=== PATIENT | female | born 1955 | race Caucasian/White ===

== ENCOUNTER 2018-04-24 12:46 | Emergency (ER) | payer SELFPAY ==
[~2018-04-24] VITALS: Ht 177.8 cm; Wt 56.8 kg
[2018-04-24 12:51] VITALS: TEMP 98.1
[2018-04-24 13:23] LABS: BASO % 0.2 % (0.0-2.0); GRAN % 82.3 % (42.2-75.2); HEMATOCRIT 41.3 % (37.0-47.0); HEMOGLOBIN 14.2 g/dl (12.5-16.0); LYMPH % 10.1 % (20.0-51.0); MEAN CELL VOLUME 89 fl (80.0-100.0); MEAN CORPUSCULAR HEMOGLOBIN 31 pg (27.0-31.0); MEAN CORPUSCULAR HGB CONC 34 g/dl (33.0-37.0); MEAN PLATELET VOLUME 10.2 fl (7.4-10.4); MONO # 0.7 (0.1-0.6); MONO % 6.9 % (1.7-9.3); PLATELET COUNT 271 K/mm3 (130-400); RED BLOOD COUNT 4.64 M/mm3 (4.10-5.30); REDCELL DISTRIBUTION WIDTH-CV 13.1 % (11.5-14.5)
[2018-04-24 13:38] LABS: ALANINE AMINOTRANSFERASE 16 U/L (9-52); ALBUMIN 4.6 gm/dL (3.5-5.0); ALKALINE PHOSPHATASE 98 U/L (50-136); ANION GAP 11 mmol/L (7-16); AST,SGOT 18 U/L (15-37); BILIRUBIN,TOTAL 0.5 mg/dL (0.0-1.0); BLOOD UREA NITROGEN 18 mg/dL (7-17); CALCIUM 10.6 mg/dL (8.4-10.2); CARBON DIOXIDE 26 mmol/L (22-30); CHLORIDE 101 mmol/L (98-107); CREATININE, serum 0.76 mg/dL (0.52-1.25); GLUCOSE 151 mg/dL (74-106); MAGNESIUM 1.8 mg/dL (1.6-2.3); PHOSPHOROUS 3.3 mg/dL (2.5-4.5); POTASSIUM 3.6 mmol/L (3.4-5.0); SODIUM 138 mmol/L (137-145)
[2018-04-24 13:49] LABS: TROPONIN-I < 0.012 ng/mL (0.000-0.034)
[2018-04-24 14:52] VITALS: BP 126/75; PULSE 78
== END 2018-04-24 15:10 | disposition short-term general hospital (02) ==
LOC: COL.ER 12:46
PROVIDERS: Emergency Medicine
DX: I60.9 Nontraumatic subarachnoid hemorrhage, unspecified (principal); F17.210 Nicotine dependence, cigarettes, uncomplicated; W19.XXXA Unspecified fall, initial encounter; Y92.009 Unspecified place in unspecified non-institutional (private) residence as the place of occurrence of the external cause
CPT/HCPCS: J1953; J2405; J3010; J7030; J7050

== ENCOUNTER 2018-08-26 21:32 | Emergency (ER) | payer MEDICAID ==
[2018-08-26 22:24] LABS: BASO % 0.3 % (0.0-2.0); EOS # 0.1 (0.0-0.7); EOS % 0.9 % (0-4.0); GRAN # 11.7 (1.4-6.5); GRAN % 82.3 % (42.2-75.2); HEMOGLOBIN 11.3 g/dl (12.5-16.0); LYMPH # 0.9 (1.2-3.4); MEAN CELL VOLUME 87 fl (80.0-100.0); MEAN CORPUSCULAR HEMOGLOBIN 27 pg (27.0-31.0); MEAN CORPUSCULAR HGB CONC 31 g/dl (33.0-37.0); MEAN PLATELET VOLUME 9.1 fl (7.4-10.4); MONO # 1.4 (0.1-0.6); PLATELET COUNT 380 K/mm3 (130-400); RED BLOOD COUNT 4.17 M/mm3 (4.10-5.30); REDCELL DISTRIBUTION WIDTH-CV 14.4 % (11.5-14.5)
[2018-08-26 22:29] LABS: HEMATOCRIT 36.2 % (37.0-47.0)
[2018-08-26 22:39] LABS: ALANINE AMINOTRANSFERASE < 6 U/L (9-52); ALKALINE PHOSPHATASE 148 U/L (50-136); ANION GAP 13 mmol/L (7-16); AST,SGOT 18 U/L (15-37); BILIRUBIN,TOTAL 0.3 mg/dL (0.0-1.0); BLOOD UREA NITROGEN 25 mg/dL (7-17); CARBON DIOXIDE 24 mmol/L (22-30); CHLORIDE 103 mmol/L (98-107); CREATININE, serum 0.73 (0.52-1.25); GLUCOSE 100 mg/dL (74-106); LIPASE 42 U/L (23-300); POTASSIUM 4.2 mmol/L (3.4-5.0); SODIUM 141 mmol/L (137-145); TOTAL PROTEIN 8.3 gm/dL (6.4-8.2)
[2018-08-26 22:47] LABS: COLLECTION METHOD CLEAN CATCH
[2018-08-26 22:48] LABS: TROPONIN-I < 0.012 ng/mL (0.000-0.035)
[2018-08-26 22:57] LABS: AMORPHOUS CRYSTAL Present /uL; PH 7 (5-8); SQUAMOUS EPITHELIAL 0-2 /hpf; URINE APPEARANCE Clear; URINE BACTERIA None Seen /hpf; URINE BILIRUBIN Negative (NEGATIVE); URINE BLOOD 1+ (NEGATIVE); URINE COLOR Yellow; URINE GLUCOSE Negative (NEGATIVE); URINE KETONE Trace (NEGATIVE); URINE LEUKOCYTE ESTERASE Negative (NEGATIVE); URINE NITRATE Negative (NEGATIVE); URINE PROTEIN(semi-quant) Negative (NEGATIVE); URINE UROBILINOGEN Negative (NEGATIVE)
[2018-08-26 23:12] LABS: C-REACTIVE PROTEIN 14.2 mg/dL (0.0-0.9)
[2018-08-26] MEDS ORDERED: ROXICODONE 55 MG/TAB PO (23:13)
[2018-08-26] MEDS ORDERED: LIORESAL20 MG PO (23:13)
[2018-08-26] MEDS ORDERED: ASPIRIN 32325 MG/TAB PO (23:14)
[2018-08-26] MEDS ORDERED: FLOMAX 0.40.4 MG/CAP PO (23:14)
[2018-08-26] MEDS ORDERED: DEPAKOTE ER 50500 MG PO ×2 (23:15)
[2018-08-26] MEDS ORDERED: MELATONIN5 M1 PO (23:16)
[2018-08-26] MEDS ORDERED: ELAVIL100 MG PO (23:16)
[2018-08-26] MEDS ORDERED: NEURONTIN300 MG/CAP PO (23:16)
[2018-08-26] MEDS ORDERED: PROAIR HFA0.09 MG/AC INH (23:17)
[2018-08-26 23:30] VITALS: BP 147/81; PULSE 131; TEMP 103.8
== END 2018-08-27 00:03 | disposition short-term general hospital (02) ==
LOC: COL.ER 21:32
PROVIDERS: Emergency Medicine
DX: J18.1 Lobar pneumonia, unspecified organism (principal); A41.9 Sepsis, unspecified organism; Z79.82 Long term (current) use of aspirin
CPT/HCPCS: J0692; J2543; J7030; J7050

== ENCOUNTER 2018-09-11 13:31 | Emergency (ER) | payer MEDICAID ==
[~2018-09-11] VITALS: Ht 175.3 cm; Wt 76.4 kg
[~2018-09-11 13:31] MED LIST: ASPIRIN 32325 MG/TAB PO; DEPAKOTE ER 50500 MG PO; ELAVIL100 MG PO; FLOMAX 0.40.4 MG/CAP PO; LIORESAL20 MG PO; MELATONIN5 M1 PO; NEURONTIN300 MG/CAP PO; PROAIR HFA0.09 MG/AC INH; ROXICODONE 55 MG/TAB PO
[2018-09-11 13:35] VITALS: TEMP 98.8
[2018-09-11 15:00] LABS: BASO # 0.1 (0.0-0.2); BASO % 0.8 % (0.0-2.0); EOS # 0.3 (0.0-0.7); EOS % 4.3 % (0-4.0); GRAN # 3.6 (1.4-6.5); GRAN % 57.3 % (42.2-75.2); HEMOGLOBIN 11.2 g/dl (12.5-16.0); LYMPH # 1.8 (1.2-3.4); LYMPH % 29.4 % (20.0-51.0); MEAN CELL VOLUME 87 fl (80.0-100.0); MEAN CORPUSCULAR HEMOGLOBIN 27 pg (27.0-31.0); MEAN CORPUSCULAR HGB CONC 31 g/dl (33.0-37.0); MEAN PLATELET VOLUME 9.6 fl (7.4-10.4); MONO # 0.5 (0.1-0.6); MONO % 7.9 % (1.7-9.3); PLATELET COUNT 337 K/mm3 (130-400); RED BLOOD COUNT 4.14 M/mm3 (4.10-5.30); REDCELL DISTRIBUTION WIDTH-CV 15.2 % (11.5-14.5)
[2018-09-11 15:04] LABS: HEMATOCRIT 35.9 % (37.0-47.0)
[2018-09-11 15:11] LABS: ALBUMIN 3.8 gm/dL (3.5-5.0); BILIRUBIN,TOTAL 0.2 mg/dL (0.0-1.0); C-REACTIVE PROTEIN 0.6 mg/dL (0.0-0.9); CALCIUM 9.7 mg/dL (8.4-10.2); CREATININE, serum 0.59 (0.52-1.25); POTASSIUM 4.4 mmol/L (3.4-5.0); TOTAL PROTEIN 7.6 gm/dL (6.4-8.2)
--- NOTE | 2018-09-11 15:11 | NUR ---
FITO was called by ED nurse to speak with patient's daughter about options for home health or LTC. FITO met with patient's daughter, Crystal. Crystal is the primary caregiver for patient since june. Patient had a stoke in April and has been getting outpatient PT, OT, and ST since her stroke. Patient's daughter reports she has tried to get patient into a nursing facility for LTC but she has not found a facility that will accept her. Also, if patient was in LTC she would not recieve any therapies. Patient and daughter would like patient to continue with therapies but patient's daughter needs more assistance at home. Crystal reported that patient has recenlty been approved for 64 hours of home health services through [facility]. Those services have not started yet, but Crystal is working to get those started. FITO reported that if Crystal would like her to continue with outpatient therapies but also recieve home health nursing, FITO can help arrange home health. Crystal reports she would appreciate that. FITO gave home health choices and Crystal reports she is okay with [facility] faxing a referral to [facility]. [facility]O faxed the referral and [facility] accepted patient. FITO will fax home health orders once they're signed.
[2018-09-11 15:38] LABS: COLLECTION METHOD CATHETER
[2018-09-11 16:03] LABS: PH 7 (5-8); SQUAMOUS EPITHELIAL 0-2 /hpf; URINE APPEARANCE Clear; URINE BACTERIA None Seen /hpf; URINE BILIRUBIN Negative (NEGATIVE); URINE BLOOD Negative (NEGATIVE); URINE COLOR Yellow; URINE GLUCOSE Negative (NEGATIVE); URINE KETONE Negative (NEGATIVE); URINE LEUKOCYTE ESTERASE Negative (NEGATIVE); URINE NITRATE Negative (NEGATIVE); URINE PROTEIN(semi-quant) Negative (NEGATIVE); URINE RBC 0-2 /hpf; URINE UROBILINOGEN Negative (NEGATIVE)
[2018-09-11 16:38] VITALS: BP 123/66; PULSE 85
== END 2018-09-11 16:45 | disposition home or self-care (01) ==
LOC: COL.ER 13:31
PROVIDERS: Emergency Medicine
DX: F91.8 Other conduct disorders (principal); J44.9 Chronic obstructive pulmonary disease, unspecified; Z86.73 Personal history of transient ischemic attack (TIA), and cerebral infarction without residual deficits; Z79.82 Long term (current) use of aspirin
CPT/HCPCS: J7030

== ENCOUNTER 2018-09-27 12:00 | Emergency (ER) | payer MEDICAID ==
[~2018-09-27] VITALS: Ht 152.4 cm; Wt 61.4 kg
[~2018-09-27 12:00] MED LIST changes: -NEURONTIN300 MG/CAP PO; +NEURONTIN600 MG/TAB PO
[2018-09-27 12:05] VITALS: TEMP 98.1
[2018-09-27 12:26] LABS: BASO % 0.4 % (0.0-2.0); EOS # 0.7 (0.0-0.7); EOS % 9.5 % (0-4.0); GRAN # 3.3 (1.4-6.5); GRAN % 48.1 % (42.2-75.2); HEMOGLOBIN 11.2 g/dl (12.5-16.0); LYMPH # 2.2 (1.2-3.4); LYMPH % 31.7 % (20.0-51.0); MEAN CELL VOLUME 88 fl (80.0-100.0); MEAN CORPUSCULAR HEMOGLOBIN 27 pg (27.0-31.0); MEAN CORPUSCULAR HGB CONC 31 g/dl (33.0-37.0); MEAN PLATELET VOLUME 10.1 fl (7.4-10.4); MONO # 0.7 (0.1-0.6); MONO % 9.9 % (1.7-9.3); PLATELET COUNT 266 K/mm3 (130-400); RED BLOOD COUNT 4.14 M/mm3 (4.10-5.30); REDCELL DISTRIBUTION WIDTH-CV 17.2 % (11.5-14.5)
[2018-09-27 12:39] LABS: ALANINE AMINOTRANSFERASE < 6 U/L (9-52); ALBUMIN 3.7 gm/dL (3.5-5.0); ALKALINE PHOSPHATASE 99 U/L (50-136); ANION GAP 10 mmol/L (7-16); AST,SGOT 21 U/L (15-37); BILIRUBIN,TOTAL 0.3 mg/dL (0.0-1.0); BLOOD UREA NITROGEN 30 mg/dL (7-17); C-REACTIVE PROTEIN 0.6 mg/dL (0.0-0.9); CALCIUM 9.2 mg/dL (8.4-10.2); CARBON DIOXIDE 25 mmol/L (22-30); CHLORIDE 107 mmol/L (98-107); GLUCOSE 92 mg/dL (74-106); POTASSIUM 4.4 mmol/L (3.4-5.0); SODIUM 141 mmol/L (137-145); TOTAL PROTEIN 7.2 gm/dL (6.4-8.2)
[2018-09-27] MEDS ORDERED: TYLENOL 8 HR PO (12:50)
[2018-09-27] MEDS ORDERED: NEURONTIN300 MG/CAP PO (12:51)
[2018-09-27 12:52] LABS: PROLACTIN 46.3 ng/mL (3.0-18.6)
[2018-09-27 13:25] LABS: HEMATOCRIT 36.5 % (37.0-47.0)
[2018-09-27] MEDS ORDERED: BENADRYL25 M2 PO (13:26)
[2018-09-27] MEDS ORDERED: MULTI VITAMINS1 TAB PO (13:40)
[2018-09-27 13:51] LABS: COLLECTION METHOD CLEAN CATCH
[2018-09-27 13:59] LABS: MUCOUS Present /lpf; PH 7 (5-8); SQUAMOUS EPITHELIAL None Seen /hpf; URINE APPEARANCE Clear; URINE BACTERIA None Seen /hpf; URINE BILIRUBIN Negative (NEGATIVE); URINE BLOOD 1+ (NEGATIVE); URINE COLOR Yellow; URINE GLUCOSE Negative (NEGATIVE); URINE KETONE Negative (NEGATIVE); URINE LEUKOCYTE ESTERASE Negative (NEGATIVE); URINE NITRATE Negative (NEGATIVE); URINE PROTEIN(semi-quant) Negative (NEGATIVE); URINE UROBILINOGEN Negative (NEGATIVE)
[2018-09-27] MEDS ORDERED: KEPPRA 500MG500 MG PO (14:35)
[2018-09-27 15:40] VITALS: BP 97/56; PULSE 94
== END 2018-09-27 15:40 | disposition home or self-care (01) ==
LOC: COL.ER 12:00
PROVIDERS: Physician Assistant
DX: G40.909 Epilepsy, unspecified, not intractable, without status epilepticus (principal); F17.210 Nicotine dependence, cigarettes, uncomplicated; Z86.73 Personal history of transient ischemic attack (TIA), and cerebral infarction without residual deficits
CPT/HCPCS: J1953; J7030

== ENCOUNTER 2018-10-01 13:00 | Outpatient (RCR) | payer MEDICAID ==
[~2018-10-01 13:00] MED LIST changes: +BENADRYL25 M2 PO; +KEPPRA 500MG500 MG PO; +MULTI VITAMINS1 TAB PO; +NEURONTIN300 MG/CAP PO; +TYLENOL 8 HR PO
== END 2018-10-04 | disposition still patient (30) ==
LOC: MKS.ESL.PT
DX: I69.020 Aphasia following nontraumatic subarachnoid hemorrhage (principal); I69.028 Other speech and language deficits following nontraumatic subarachnoid hemorrhage; Z91.81 History of falling

== ENCOUNTER 2018-10-07 10:44 | Inpatient (IN) | payer MEDICAID ==
[~2018-10-07] VITALS: Ht 175.3 cm; Wt 85.5 kg
[~2018-10-07 10:44] MED LIST changes: +DEPAKOTE ER 25250 MG PO
[2018-10-07 11:26] LABS: BASO % 0.2 % (0.0-2.0); EOS # 0.1 (0.0-0.7); GRAN # 6.4 (1.4-6.5); GRAN % 70.1 % (42.2-75.2); HEMOGLOBIN 10.4 g/dl (12.5-16.0); LYMPH # 1.2 (1.2-3.4); MEAN CELL VOLUME 88 fl (80.0-100.0); MEAN CORPUSCULAR HEMOGLOBIN 27 pg (27.0-31.0); MEAN CORPUSCULAR HGB CONC 31 g/dl (33.0-37.0); MONO # 1.4 (0.1-0.6); MONO % 15.3 % (1.7-9.3); PLATELET COUNT 253 K/mm3 (130-400); RED BLOOD COUNT 3.86 M/mm3 (4.10-5.30); REDCELL DISTRIBUTION WIDTH-CV 18.9 % (11.5-14.5)
[2018-10-07 11:30] LABS: HEMATOCRIT 33.8 % (37.0-47.0)
[2018-10-07 11:44] LABS: ARTERIAL BLD GAS O2 SATURATION 94.5 % (92-100); ARTERIAL BLD GAS TCO2 CT 21.6; ARTERIAL BLOOD GAS HCO3 20.6 meq/L (22-26); ARTERIAL BLOOD GAS PCO2 31.8 mmHg (35-45); ARTERIAL BLOOD GAS PO2 77.4 mmHg (80-100); ARTERIAL BLOOD GAS pH 7.43 (7.35-7.45)
[2018-10-07 11:52] LABS: ALANINE AMINOTRANSFERASE < 6 U/L (9-52); ALBUMIN 3.6 gm/dL (3.5-5.0); ALKALINE PHOSPHATASE 128 U/L (50-136); ANION GAP 9 mmol/L (7-16); AST,SGOT 15 U/L (15-37); BILIRUBIN,TOTAL 0.3 mg/dL (0.0-1.0); BLOOD UREA NITROGEN 25 mg/dL (7-17); CALCIUM 9.4 mg/dL (8.4-10.2); CARBON DIOXIDE 25 mmol/L (22-30); CHLORIDE 106 mmol/L (98-107); CREATININE, serum 0.59 (0.52-1.25); GLUCOSE 100 mg/dL (74-106); POTASSIUM 4.1 mmol/L (3.4-5.0); SODIUM 140 mmol/L (137-145); TOTAL PROTEIN 7.3 gm/dL (6.4-8.2)
[2018-10-07 12:04] LABS: C-REACTIVE PROTEIN 22.9 mg/dL (0.0-0.9); TROPONIN-I < 0.012 ng/mL (0.000-0.035)
[2018-10-07 12:13] LABS: COLLECTION METHOD CLEAN CATCH
[2018-10-07 12:20] LABS: MUCOUS Present /lpf; PH 6 (5-8); SQUAMOUS EPITHELIAL 0-2 /hpf; URINE APPEARANCE Clear; URINE BACTERIA None Seen /hpf; URINE BILIRUBIN Negative (NEGATIVE); URINE BLOOD Negative (NEGATIVE); URINE COLOR Yellow; URINE GLUCOSE Negative (NEGATIVE); URINE KETONE Trace (NEGATIVE); URINE LEUKOCYTE ESTERASE Negative (NEGATIVE); URINE NITRATE Negative (NEGATIVE); URINE PROTEIN(semi-quant) Negative (NEGATIVE); URINE UROBILINOGEN Negative (NEGATIVE)
[2018-10-07] MEDS ORDERED: AMITRIPTYLINE H50 M1 PO (12:50)
[2018-10-07] MEDS ORDERED: NEURONTIN300 MG/CAP PO (12:53)
--- NOTE | 2018-10-07 13:12 | NUR ---
Pt admitted to ICU bed 8 at this time. Pt arrived via stretcher and placed on groundwater monitoring technician upon arrival. Pt tolerated transfer well displaying no signs of discomfort. Bed in low position, call light within reach, will continue to monitor. Dr. Sarkar notified of Pt admission to unit.
[2018-10-07 13:53] LABS: INR 1.1 (0.8-3.0); PROTHROMBIN TIME 12.3 SECONDS (9.7-12.8)
[2018-10-07 14:03] VITALS: BP 104/54; PULSE 84; TEMP 98
[2018-10-07] MEDS ORDERED: BENADRYL50 MG PO (14:42)
[2018-10-07] MEDS ORDERED: KEPPRA 500MG500 MG PO (14:43)
[2018-10-07] MEDS ORDERED: KEPPRA1000 MG PO (14:44)
--- NOTE | 2018-10-07 14:58 | NUR ---
Admission assessment complete at this time. Plan of care reviewed at bedside with daughter. Vitals stable at this time. Will continue to monitor. All questions answered.
[2018-10-07 16:00] VITALS: BP 127/76; PULSE 88; TEMP 97.6
--- NOTE | 2018-10-07 19:11 | NUR ---
Bedside report given to ANNETTA Ordaz.
--- NOTE | 2018-10-07 19:15 | NUR ---
Bedside report received from ANNETTA Harrington. All lines and medications reviewed. Transfer of care at this time.
[2018-10-07 20:00] VITALS: BP 113/73; BP 123/77; PULSE 95; PULSE 96; TEMP 97.5; TEMP 98.1
--- NOTE | 2018-10-07 20:00 | NUR ---
Patient awake in bed resting with family at the bedside. Assessment complete. Patient denies any pain. Lungs are coarse in all jacob. Patient has a wet cough that is not productive. HR and rhythm regular, normal S1 and S2 heard. Bowel sounds active x4. Patient only has trace movements in her right extremities. Full function on left side. Unable to determine if patient is oriented due to lack of speech, but she does follow commands and attempts to answer questions. No further needs at this time. Will continue to monitor. Call light within reach.
[2018-10-08] VITALS: BP 123/77; PULSE 95; TEMP 97.5
--- NOTE | 2018-10-08 | NUR ---
Patient awake watching tv at this time. WHen asked if she is having any pain, she says "no". Assessment complete. No changes from previous exam. Patient's lungs remain coarse with a wet cough. Cough is not productive. Patient has taken her oxygen off and is doing well without it. Oxygen saturations staying 97% and above. Patient has no further needs at this time. Will continue to monitor. Call light within reach.
[2018-10-08 04:00] VITALS: BP 132/79; PULSE 92; TEMP 97.4
--- NOTE | 2018-10-08 04:00 | NUR ---
Patient awake at this time and laying in bed. When asked if she needs anything, she denies. Assessment complete. No changes from previous exam except for some coarse crackles in the right upper lobe of the lung. Vitals obtained and remain stable. No further needs. Will continue to monitor. Call light within reach.
[2018-10-08 05:52] LABS: BASO % 0.3 % (0.0-2.0); EOS % 0.3 % (0-4.0); GRAN # 4.5 (1.4-6.5); GRAN % 73.1 % (42.2-75.2); LYMPH % 15.7 % (20.0-51.0); MEAN CELL VOLUME 86 fl (80.0-100.0); MEAN CORPUSCULAR HGB CONC 31 g/dl (33.0-37.0); MEAN PLATELET VOLUME 9.9 fl (7.4-10.4); MONO # 0.6 (0.1-0.6); MONO % 10.1 % (1.7-9.3); PLATELET COUNT 237 K/mm3 (130-400); RED BLOOD COUNT 3.49 M/mm3 (4.10-5.30); REDCELL DISTRIBUTION WIDTH-CV 18.2 % (11.5-14.5)
[2018-10-08 05:55] LABS: HEMATOCRIT 30.1 % (37.0-47.0); HEMOGLOBIN 9.4 g/dl (12.5-16.0); MEAN CORPUSCULAR HEMOGLOBIN 27 pg (27.0-31.0)
--- NOTE | 2018-10-08 06:00 | NUR ---
Daughter, Bushra, at the bedside at this time. Updated her on events through the night.
[2018-10-08 06:12] LABS: ALANINE AMINOTRANSFERASE < 6 U/L (9-52); ALBUMIN 3.1 gm/dL (3.5-5.0); ALKALINE PHOSPHATASE 117 U/L (50-136); ANION GAP 10 mmol/L (7-16); AST,SGOT 12 U/L (15-37); BILIRUBIN,TOTAL 0.1 mg/dL (0.0-1.0); BLOOD UREA NITROGEN 16 mg/dL (7-17); CALCIUM 8.7 mg/dL (8.4-10.2); CARBON DIOXIDE 23 mmol/L (22-30); CHLORIDE 110 mmol/L (98-107); CREATININE, serum 0.43 (0.52-1.25); GLUCOSE 86 mg/dL (74-106); POTASSIUM 3.4 mmol/L (3.4-5.0); SODIUM 143 mmol/L (137-145); TOTAL PROTEIN 6.6 gm/dL (6.4-8.2)
--- NOTE | 2018-10-08 07:08 | NUR ---
Bedside report given to ANNETTA Harrington
[2018-10-08 08:00] VITALS: BP 137/70; PULSE 98; TEMP 97.5
--- NOTE | 2018-10-08 08:00 | NUR ---
Shift assessment complete at this time. Plan of care reviewed at bedside with patient et family. Additional time taken to address any other needs or concerns. Vitals stable at this time. Pt reports minor generalized pain. No medications available PRN on eMAR. Will consult with attending. Bed in low position, call light within reach, will continue to monitor.
--- NOTE | 2018-10-08 12:00 | NUR ---
PT ADMITTED TO MEDICAL FLOOR AT THIS TIME.
--- NOTE | 2018-10-08 13:00 | NUR ---
THIS NURSE ASSISTED PT TO GET PT COMFORTABLE. IV FLUIDS INFUSING. RIDER CATHETER IN PLACE AND NOTED URINE RETURN.
[2018-10-08 14:54] VITALS: BP 167/96; PULSE 96; TEMP 97.8
--- NOTE | 2018-10-08 15:00 | NUR ---
PT WAS ASSISTED TO RECLINER. PT HAD 2 MED SOFT STOOLS. NO OTHER ISSUES NOTED. PT DRINKING KCL REPLACEMENT DRINK.
--- NOTE | 2018-10-08 17:00 | NUR ---
PT DAUGHTER IN FACILITY TO VISIT AT THIS TIME AND ASKED IF PT WOULD BE ABLE TO SWITCH TO A CLOSER ROOM FROM ROOM 306. DAUGHTER STATED THAT PT HAS FALLEN IN PAST AND THAT SHE HAS SIGNIFICANT BRAIN DAMANAGE AND CANT BE THAT FAR FROM NURSES STATION. PT MOVED TO ROOM 314 AT THIS TIME.
--- NOTE | 2018-10-08 18:20 | NUR ---
PT HAS C/O PAIN AT THIS TIME NO PAIN MEDS ON ORDER, THIS NURSE CALLED ROBER MERCHANT AND RECIEVED ORDER FOR PRN NORCO AND PRN TYLENOL IF NEEDED. THIS NURSE TOOK PATIENT MEDICATION AT THIS TIME. PT HASNT EATEN MUCH THIS SHIFT. FOOD ORDERED AND OFFERED PT REFUSED TO EAT MORE THEN A FEW BITES EACH TIME. NO OTHER ISSUES NOTED.
[2018-10-08 20:20] VITALS: BP 127/64; PULSE 101; TEMP 98.3
--- NOTE | 2018-10-08 21:30 | NUR ---
Patient pulling at berg catheter. Explained reason for keeping the catheter. Unsure if she comprehended. Has harsh loose cough, non productive. Takes meds whole without choking. Finished her oral potassium including last dose at this time. Has left PICC with NS infusing without redness or swelling, intermittent antibiotics administered. Removed both peripheral IV sites from right and left arm, angiocaths intact.
--- NOTE | 2018-10-08 22:25 | NUR ---
Patient has pulled berg catheter out and has BM smeared on bed and her left hand. Kim care provided, linens changed and patient repositioned.
--- NOTE | 2018-10-08 23:15 | NUR ---
NOTIFIED LESTER GONZALEZ OF PATIENT PULLING OUT RIDER CATHETER AROUND AN HOUR AGO. WILL BLADDER SCAN IN 4 HRS.
[2018-10-08 23:25] VITALS: BP 145/76; PULSE 89; TEMP 98.6
--- NOTE | 2018-10-09 03:20 | NUR ---
Patient restless, had a pain pill at 0300. Has taken attends off and has BM smeared on bed. Incontinent of large amount of urine as well as mod BM. Kim care provided and linens changed.
[2018-10-09 04:25] VITALS: BP 121/64; PULSE 95
--- NOTE | 2018-10-09 04:26 | NUR ---
PATIENT TRYING TO GET OUT OF BED ON OWN, ASSISTED TO BSC WITH 2 ASSIST AND GAIT BELT. ANSWERS "NO" TO ANY ATTEMPT OF INTERVENTION. PUSHES THERMOMETER AND SAO2 MONITOR OUT OF THE WAY. AFTER VOIDING 600CC OF URINE AND HAS XLARGE STOOL, ASSISTED BACK TO BED WITH 2. BED ALARM ON.
--- NOTE | 2018-10-09 05:20 | NUR ---
Patient swatting at staff, trying to get out of bed. Phoned pts daughter Crystal, she spoke with pt on the phone and will be up to see her mom in 20min.
--- NOTE | 2018-10-09 05:37 | NUR ---
Pts daughter is at bedside.
--- NOTE | 2018-10-09 06:30 | NUR ---
Patient up to BSC to void, transfers with 2:1 assist. Has voided well this shift. Back to bed with 2:1 assist and gait belt.
[2018-10-09 06:31] LABS: HEMOGLOBIN 10.7 g/dl (12.5-16.0); MEAN CELL VOLUME 85 fl (80.0-100.0); MEAN CORPUSCULAR HEMOGLOBIN 27 pg (27.0-31.0); MEAN CORPUSCULAR HGB CONC 32 g/dl (33.0-37.0); MEAN PLATELET VOLUME 9.8 fl (7.4-10.4); PLATELET COUNT 319 K/mm3 (130-400); RED BLOOD COUNT 3.93 M/mm3 (4.10-5.30); REDCELL DISTRIBUTION WIDTH-CV 17.9 % (11.5-14.5)
[2018-10-09 06:39] LABS: HEMATOCRIT 33.3 % (37.0-47.0)
[2018-10-09 06:43] LABS: CALCIUM 9.6 mg/dL (8.4-10.2); CREATININE, serum 0.45 (0.52-1.25); POTASSIUM 3.5 mmol/L (3.4-5.0)
[2018-10-09 07:29] LABS: BAND 11 % (0-10); LYMPHOCYTE 9 % (20.0-51.0); NEUTROPHILS 79 % (42.0-75.2); PLATELET ESTIMATE NORMAL (NORMAL)
[2018-10-09 07:30] LABS: HYPOCHROMIA 1+
[2018-10-09 08:55] VITALS: BP 153/100; PULSE 91; TEMP 98.6
[2018-10-09 11:46] VITALS: BP 145/92; PULSE 98; TEMP 98.2
--- NOTE | 2018-10-09 13:59 | NUR ---
SW attended clincal rounds to discuss discharge planning. Patient lives at home with her daughter, Bushra. Patient's PCP is Dr Walter and she obtains prescriptions from [facility]. Patient has 106 hours a week of home health care and patient's daughter cares for her as well. Patient recieves out patient PT/OT/ST. Patient's daughter has looked into patient going to a facility but patient's insurance will not cover therapies in the custodial. SW confirmed this with a nursing facility. Patient's daughter feels comfortable taking patient home. Patient has a wheelchair for mobility at home. Patient will likely discharge tomorrow per doctor.
[2018-10-09 16:45] VITALS: BP 152/116; PULSE 115; TEMP 98
[2018-10-09] MEDS ORDERED: KEPPRA1000 MG PO ×2 (17:37)
[2018-10-09] MEDS ORDERED: CLEOCIN HC150 MG/CAP PO (17:41)
--- NOTE | 2018-10-09 18:00 | NUR ---
PT HAS BEEN ANXIOUS AND RESTLESS ALL DAY. PT HAD IV FLUIDS INFUSING WITHOUT ISSUE THROUGHOUT THE DAY. PT BECAME INCREASING MORE CONFUSED AND AGITATED THE DAY PROGRESSED. EARLY IN DAY PT WENT DOWN AND HAD BARRIUM SWALLOW TEST, PT TOLERATED WELL. REPLACED POTASSIUM THIS SHIFT VIA IV. PT RECIEVING IV ABX. PT UNABLE TO COMMUNICATE WITH STAFF WELL DUE TO CVA, PT DAUGHTER DID TEL THIS NURSE TO CALL HER IF PT WAS AGITATED AND WE WHERE UNABLE TO CALM PT DOWN. THIS NURSE HAD CALLED PT DAUGHTER TWICE THIS SHIFT, THE FIRST TIME PT DAUGHTER WAS ABLE TO REDIRECT PT OVER THE PHONE, PT WAS CALMED DOWN FOR AWHILE AFTER THAT PHONE CALL. AT APPROX 4PM, PT THEN BEGAN TO GET INCREASINGLY AGITATED. PT BAGAN TO RIP OFF IV LINE AND TELE. PT REFUSED IV FLUIDS AT THIS TIME. THIS NURSE CALLED DAUGHTER IN ATTEMPTS TO HELP CALM PT. DAUGHTER THEN TALKED TO VIA PHONE CALL, DAUGHTER STATED THAT SHE WOULD LIKE IF HER MOTHER COULD BE PUT ON SOME MEDICATION FOR THE ANXIOUSNESS IF POSSIBLE. THIS NURSE DID TALK TO DR. WALKER ABOUT PT, THEN TALKED TO PT ABOUT THE PLAN OF CARE AND THE PLAN TO DISCHARGE IN THE AM. PT VOICED UNDERSTANDING. DR. PHELPS'Oscar THE CONTINOUS FLUIDS AND ASKED PT IF WE COULD STILL GIVE ABX VIA IV. PT VOICED YES. THIS NURSE BAGAN IV ABX. PT DAUGHTER LATER ARRIVED AT BEDSIDE. DAUGHTER ASKED IF SHE COULD TALK TO DOCTOR. THIS NURSE CALLED DR. LIN BACK AND ASKED HIM IF HE COULD COME TALK WITH PT DAUGHTER. DID. AFTER THE VISIT, INFORMED THIS NURSE THAT PT WAS ABLE TO DISCHARGE AND THAT HE DID WANT HER TO FINISH THE NEXT ABX DOSAGE FIRST.
--- NOTE | 2018-10-09 19:00 | NUR ---
IV FLUIDS INFUSING, ALMOST FINISHED. PT DAUGHTER HELPING PT TO USE COMMODE AT THIS TIME. DAUGHTER VOICED TO THIS NURSE THAT SHE HAS TO GO TO WORK AND THAT SHE CANT TAKE HER MOTHER HOME WITH HER LIKE SHE IS AT THIS TIME DUE TO HER ANXIOUSNESS. PT DAUGHTER WORRIED THAT PT WILL BECOME EVEN MORE CONFUSED AND WONT BE ABLE TO BE LEFT HOME WHILE SHE GOES TO WORK. PT DAUGHTER DID VOICE TO THIS NURSE THAT IF SHE HAS TO TAKE HER MOTHER HOME LIKE SHE IS NOW THAT SHE WOULD GIVE HER MOTHER "THE MAX DOSE OF HER [place] AND MAKE HE GO TO SLEEP" SO THAT WAY SHE COULD TRUST HER MOM AT HOME RIGHT NOW. AND THAT IN THE PAST SHE HAD TO DEAL WITH HER MOTHER IN A SIMALAR SITUATION AFTER HER MOTHER WAS DISCHARGED FROM THE HOSPITAL AND THAT HER MOTHER WAS VERY DULERIUS AND WOULD TRY TO LEAVE THE CAR WHILE SHE WAS DRIVING AND THAT SHE HAD TO STRAP HER MOTHER INTO THE SEAT IN ORDER FOR HER NOT TO GET OUT OF THE MOVING CAR. PT DAUGHTER ALSO VOICED TO THIS NURSE THAT SHE HAS HAD TO HAVE HER MOTHER KNOCKED OUT ON MEDS IN THE CAR SLEEPING WITH HER DAUGHTER WATCHING OVER HER WHILE SHE WAS AT WORK. AND THAT SHE DOESNT WANT TO TAKE HER MOTHER HOME AND HAVE TO DEAL WITH THE SAME PROBLEMS. THAT SHE DOESNT KNOW WHAT TO DO RIGHT NOW. PT DAUGHTER ASKED TO HAVE A DOCTOR COME VIST WITH HER IF POSSIBLE TO SEE IF THERE WAS ANYTHING THAT CAN BE DONE WITH HER MOTHER SO SHE WAS ABLE TO LEAVE TO GO TO WORK AND KNOW THAT HER MOTHER WOULD BE SAFE. THIS NURSE CALLED ROBER GONZALEZ TOLD THIS NURSE THAT PT WOULD BE ABLE TO STAY THE NIGHT IF DESIRED.
--- NOTE | 2018-10-09 19:30 | NUR ---
THIS NURSE INFORMED PT DAUGHTER THAT PT WOULD BE ABLE TO STAY THE NIGHT AND GO HOME IN THE MORNING AND VISIT WITH DR. LIN IN THE MORNING. PT DAUGHTER VOICED THAT SHE WOULDNT THINK THAT HER MOTHER WOULD BE ABLE TO SLEEP AND SHE BELIVED THAT THE PT WOULD GET WORSE. THIS NURSE DISCUSSED THAT IF PT WAS TO STAY THE NIGHT THAT WE WOULD BE ABLE TO PROVIDE A SITTER TO STAY WITH THE PATIENT. PT DAUGHTER STATED THAT HER BROTHER WAS COMING UP TO STAY WITH THE PT WHILE SHE GOES TO WORK, AND THAT IF BE ABLE TO BE DISCARGED THIS EVENING THAT SHE COULD BE ABLE TO TAKE PT HOME AFTER WORK.
--- NOTE | 2018-10-09 19:40 | NUR ---
REPORT GIVEN TO KAYKAY LITTLEJOHN. THIS NURSE AND KAYKAY WENT INTO VISIT WITH PT AND PT DAUGHTER ABOUT THE PLAN FOR THE PT, TO FIND OUT IF PT WOULD BE STAYING THE NIGHT OR IF SHE WOULD BE GOING HOME WITH HER LATER.
--- NOTE | 2018-10-09 20:20 | NUR ---
REPORT RECEIVED FROM ANNETTA CHUN. PT AND PT'S DAUGHTER WERE VERY AGITATED AND PT WAS BECOMING COMBATIVE. PT'S DAUGHTER WAS GETTING AGITATED BY THE SITUATION AND WANTED TO TAKE PT HOME, BUT IT'S TOO LATE BECAUSE SHE NEEDS GO TO WORK NOW. PT'S DAUGHTER, JOSE AND ANNETTA MCCRACKEN HAD A LONG TALK TO FIND OUT WHAT WAS REALLY GOING ON JOSE'S MIND. SHE TRULLY WANTS TO TAKE HER HOME, BUT VERY FRUSTRATED BY WHAT'S BEEN GOING ON WITH HER MOM. JOSE VENTED OUT HER FRUSTRATION AND CALMED HERSELF DOWN AFTER SHE TALKED TO ANNETTA MCCRACKEN. JOSE ASKED HER BROTHER DEBBIE TO COME TO STAY WITH HER MOM UNTIL SHE COMES BACK FROM WORK TO GET HER MOM HOME TONIGHT. DEBBIE NOW IN PT'S ROOM TO BE WITH PT AND JOSE WENT TO WORK. PT CALM AND TALKING TO DEBBIE IN AT THIS TIME. CALL LIGHT IN REACH.
--- NOTE | 2018-10-09 21:30 | NUR ---
PT'S DAUGHTER CAME BACK FROM HOME AND VERBALIZED SHE WANTED TO TAKE PT BACK HOME. DAUGHTER WENT OVER DC INSTRUCTION AND ABLE TO VERBALIZE UNDERSTANDING OF DC INSTRUCTION AND SIGNED DC PAPER. CASSANDRA, CHARGE NURSE DC'D PICC AND DAUGHTER WENT OVER PICC DC CARE INSTRUCTION AND ABLE TO VERBALIZE UNDERSTANDING. PT ESCORTED OUT IN WC.
== END 2018-10-09 21:30 | disposition home health service (06) | DRG 871 ==
LOC: COL.ER 10:44 → ICU 12:37 → MEDICAL 12:37
PROVIDERS: Emergency Medicine; Physician Assistant; ADMIT Internal Medicine
PROC: 02HV33Z Insertion of Infusion Device into Superior Vena Cava, Percutaneous Approach (ICD-10-PCS; principal; 2018-10-07)
DX: A41.9 Sepsis, unspecified organism (principal); J69.0 Pneumonitis due to inhalation of food and vomit; G93.49 Other encephalopathy; I69.051 Hemiplegia and hemiparesis following nontraumatic subarachnoid hemorrhage affecting right dominant side; G40.509 Epileptic seizures related to external causes, not intractable, without status epilepticus; R65.20 Severe sepsis without septic shock; I95.9 Hypotension, unspecified; R33.9 Retention of urine, unspecified; D64.9 Anemia, unspecified; I69.020 Aphasia following nontraumatic subarachnoid hemorrhage; I69.09 Other sequelae of nontraumatic subarachnoid hemorrhage; F51.01 Primary insomnia; Z87.891 Personal history of nicotine dependence
CPT/HCPCS: 99231-AI; 99233-AI; 99239; A4216; C1751; J0456; J0692; J1720; J1953; J2543; J2920; J3370; J3480; J7030; J7050; J7120

== ENCOUNTER 2018-10-11 11:46 | Observation (INO) | payer MEDICAID ==
[~2018-10-11] VITALS: Ht 177.8 cm; Wt 81.3 kg
[~2018-10-11 11:46] MED LIST changes: +AMITRIPTYLINE H50 M1 PO; +BENADRYL50 MG PO; +CLEOCIN HC150 MG/CAP PO; +KEPPRA1000 MG PO
[2018-10-11 12:57] LABS: ALBUMIN 3.7 gm/dL (3.5-5.0); BILIRUBIN,TOTAL 0.2 mg/dL (0.0-1.0); CALCIUM 9.5 mg/dL (8.4-10.2); CREATININE, serum 0.56 (0.52-1.25); POTASSIUM 3.4 mmol/L (3.4-5.0); TOTAL PROTEIN 7.3 gm/dL (6.4-8.2)
[2018-10-11 13:13] LABS: HEMATOCRIT 37.4 % (37.0-47.0); HEMOGLOBIN 12.1 g/dl (12.5-16.0); MEAN CELL VOLUME 84 fl (80.0-100.0); MEAN CORPUSCULAR HEMOGLOBIN 27 pg (27.0-31.0); MEAN CORPUSCULAR HGB CONC 32 g/dl (33.0-37.0); MEAN PLATELET VOLUME 9.1 fl (7.4-10.4); PLATELET COUNT 327 K/mm3 (130-400); RED BLOOD COUNT 4.45 M/mm3 (4.10-5.30); REDCELL DISTRIBUTION WIDTH-CV 17.6 % (11.5-14.5)
[2018-10-11 13:24] LABS: LACTIC ACID 1.1 mmol/L (0.4-2.0)
[2018-10-11 13:27] LABS: BAND 6 % (0-10); EOSINOPHIL 3 % (0-4); LYMPHOCYTE 37 % (20.0-51.0); METAMYELOCYTE 2 % (0-0); NEUTROPHILS 41 % (42.0-75.2)
[2018-10-11 13:28] LABS: PLATELET ESTIMATE NORMAL (NORMAL)
[2018-10-11 13:45] LABS: COLLECTION METHOD CATHETER
[2018-10-11 13:51] LABS: PH 6 (5-8); SQUAMOUS EPITHELIAL 0-2 /hpf; URINE APPEARANCE Clear; URINE BACTERIA Rare /hpf; URINE BILIRUBIN Negative (NEGATIVE); URINE BLOOD 1+ (NEGATIVE); URINE COLOR Yellow; URINE GLUCOSE Negative (NEGATIVE); URINE KETONE Negative (NEGATIVE); URINE LEUKOCYTE ESTERASE Negative (NEGATIVE); URINE NITRATE Negative (NEGATIVE); URINE PROTEIN(semi-quant) Negative (NEGATIVE); URINE UROBILINOGEN Negative (NEGATIVE)
[2018-10-11 16:14] VITALS: BP 104/50; PULSE 84; TEMP 98.7
[2018-10-11 16:30] LABS: TRICYCLIC ANTIDEPRESS URINE POSITIVE
[2018-10-11 19:34] VITALS: BP 143/65; PULSE 89; TEMP 97.5
[2018-10-11 19:39] VITALS: BP 143/65; PULSE 87; TEMP 97.5
[2018-10-12 03:11] VITALS: BP 131/70; PULSE 92; TEMP 98.5
[2018-10-12 06:05] LABS: HEMOGLOBIN 11.2 g/dl (12.5-16.0); MEAN CELL VOLUME 85 fl (80.0-100.0); MEAN CORPUSCULAR HEMOGLOBIN 27 pg (27.0-31.0); MEAN CORPUSCULAR HGB CONC 32 g/dl (33.0-37.0); PLATELET COUNT 335 K/mm3 (130-400); RED BLOOD COUNT 4.15 M/mm3 (4.10-5.30); REDCELL DISTRIBUTION WIDTH-CV 17.9 % (11.5-14.5)
[2018-10-12 06:10] LABS: HEMATOCRIT 35.3 % (37.0-47.0)
[2018-10-12 06:20] LABS: CALCIUM 8.9 mg/dL (8.4-10.2); CREATININE, serum 0.48 (0.52-1.25); POTASSIUM 3.4 mmol/L (3.4-5.0)
[2018-10-12 07:52] LABS: BAND 1 % (0-10); EOSINOPHIL 3 % (0-4); LYMPHOCYTE 36 % (20.0-51.0); NEUTROPHILS 53 % (42.0-75.2); PLATELET ESTIMATE NORMAL (NORMAL)
[2018-10-12 08:23] VITALS: BP 138/66; PULSE 101; TEMP 98.8
--- NOTE | 2018-10-12 09:30 | NUR ---
Pt in bed, alert and able to answer quesitons. Daughter is at bedside. Very concerned about pt Keppra medication. Dr. Nye notified, in room with pt. Completed morning assessment. Pt denies pain. Breathing even and unlabored, breath sounds clear. Pt up to chair, right side is flaccid. Denies any needs at this time. Daughter in room to order breakfast. Will continue to monitor.
[2018-10-12 11:23] VITALS: BP 128/67; PULSE 95; TEMP 97.6
--- NOTE | 2018-10-12 12:30 | NUR ---
Pt calling out in room, had removed tele. Helped pt back into bed, brief is dry. Put tele back on pt. Call light in reach. Denies any other needs.
--- NOTE | 2018-10-12 16:16 | NUR ---
SW contacted the patient's daughter, Crystal, to discuss discharge plan. The patient lives in [place] with her daughter (Crystal), son-in-law, and granddaugher. Crystal reports that the patient needs assistance with ADLs and uses a wheelchair. The patient's daughter reports that she provides assistance with ADLs and that the patient was just approved for home care services through [facility] for 64 hours a week during the day and 42 hours a week at night. The patient's PCP is Dr. Karen Walter and she receives her medications at the [facility]. Crystal reports no difficulties obtaining the patient's meds. The patient does not have advanced directives in EMR, but her daughter reports that she does have them completed and that she is the patient's DPOA-HC. The patient's daughter plans to bring a copy of them to the hospital. The patient's daughter reports that she has been working with the patient's insurance to get her approved for an inpatient rehab facility. She states that the case fitter, Ale, has been working on getting her to [facility] in [place], [place]. The patient's daughter requests that SW send them a referral, so that they can evaluate the patient. Crystal reports that if they are unable to evaluate the patient, while in the hospital, she is comfortable with the patient returning back home with her and them doing the evaluation in the home. FITO contacted and faxed a referral to [facility]. SW awaiting their screen.
[2018-10-12 16:53] VITALS: BP 136/74; PULSE 98; TEMP 98.7
[2018-10-12 19:09] VITALS: BP 139/58; PULSE 94; TEMP 97.9
--- NOTE | 2018-10-12 19:16 | NUR ---
Hand off report given to Denisha LITTLEJOHN. PT up in wheelchair with daughter in room.
--- NOTE | 2018-10-12 21:02 | NUR ---
HS meds given. Assessment complete. No c/o offered. Offered Tylenol but pt refused. Repositioned in bed. Lights out and bed alarm on. Call light within reach.
[2018-10-12 23:39] VITALS: BP 141/81; PULSE 88; TEMP 98.1
--- NOTE | 2018-10-12 23:50 | NUR ---
Pt resting in bed with eyes closed. Has been awake this evening and up in w/c with daughter and granddaughter. Takes po meds without any difficult. Bed alarm on.
[2018-10-13 06:02] VITALS: BP 131/70; PULSE 87; TEMP 97.5
[2018-10-13 06:03] VITALS: BP 131/70; PULSE 87; TEMP 97.5
--- NOTE | 2018-10-13 06:15 | NUR ---
Pt becoming anxious. Pulled telemetry wires off. Refuses to have the patches reapplied. Tele notified of pt not leaving monitor on. Called daughter and she spoke with her mother and then came in and is sitting with her. Had large incont. BM this shift. Report given to ANNETTA Eubanks.
[2018-10-13 07:33] VITALS: BP 142/76; PULSE 86; TEMP 98
--- NOTE | 2018-10-13 08:30 | NUR ---
Pt sitting on side of bed, denies pain. Breathing even and unlabored, breath sounds clear. Pt is calmer than during the night, telemetry is still being refused. Pt is planning to discharge today. Completed morning assessment. Right side is flaccid. Daughter is at bedside getting pt dressed to go home. Waiting on discharge orders. Will continue to monitor.
[2018-10-13] MEDS ORDERED: LIORESAL 1010 MG/TAB PO (08:55)
[2018-10-13] MEDS ORDERED: TYLENOL 500MG500 MG PO (08:56)
[2018-10-13] MEDS ORDERED: NEURONTIN300 MG/CAP PO (08:57)
[2018-10-13] MEDS ORDERED: KEPPRA750 MG PO (08:57)
[2018-10-13] MEDS ORDERED: AMITRIPTYLINE H50 M1 PO (08:57)
[2018-10-13] MEDS ORDERED: CLARITIN 1010 MG/TAB PO (08:58)
--- NOTE | 2018-10-13 09:52 | NUR ---
Pt in wheelchair, ready to leave. Informed them we were working on the discharge paperwork and would be in there as soon as possible.
--- NOTE | 2018-10-13 10:09 | NUR ---
Discharge paperwork gone over with daughter, all questions asked and answered. All belongings gathered and with daughter. INT to left wrist removed, no redness or swelling noted. Catheter tip intact. Denies any other needs, wheeled out by [facility] staff.
--- NOTE | 2018-10-13 10:30 | NUR ---
FITO attended clinical rounds. The patient is to discharge back home with her daughter today, 10/13, and resume services through [facility]. The patient's daughter requested that SW update her, once FITO hears back from [facility]. FITO attempted to contact [facility] to update them on the patient discharging back home and that she will need a home evaluation. SW left a voicemail. SW to update the patient's daughter once SW speaks to [facility].
--- NOTE | 2018-10-13 14:54 | NUR ---
FITO contacted Bere at [facility] to update them on the patient returning home with her daughter today. Bere reports that she is still waiting on their doctor to review the patient's information, but once the doctor approves/denies the patient; she will contact the patient's daughter to inform. FITO then contacted and updated the patient's daughter. The patient's daughter verbalized understanding. No additional needs at this time.
== END 2018-10-13 10:15 | disposition home or self-care (01) ==
LOC: COL.ER 11:46 → MEDICAL 13:44
PROVIDERS: Emergency Medicine; ADMIT Hospitalist
DX: R41.82 Altered mental status, unspecified (principal); G40.909 Epilepsy, unspecified, not intractable, without status epilepticus; F51.01 Primary insomnia; Z86.79 Personal history of other diseases of the circulatory system; Z87.891 Personal history of nicotine dependence; J44.9 Chronic obstructive pulmonary disease, unspecified; R53.82 Chronic fatigue, unspecified; I69.320 Aphasia following cerebral infarction; I69.390 Apraxia following cerebral infarction; I69.351 Hemiplegia and hemiparesis following cerebral infarction affecting right dominant side; Z79.899 Other long term (current) drug therapy
CPT/HCPCS: G0378; J1644; J2310; J7030

== ENCOUNTER 2018-11-11 13:00 | Outpatient (RCR) | payer MEDICAID ==
[~2018-11-11 13:00] MED LIST changes: +CLARITIN 1010 MG/TAB PO; +KEPPRA750 MG PO; +LIORESAL 1010 MG/TAB PO; +TYLENOL 500MG500 MG PO
== END 2018-11-12 13:38 | disposition home or self-care (01) ==
LOC: MKS.ESL.PT 13:00
DX: I60.12 Nontraumatic subarachnoid hemorrhage from left middle cerebral artery (principal); I67.1 Cerebral aneurysm, nonruptured; Z96.641 Presence of right artificial hip joint

== ENCOUNTER → 2019-05-17 | Outpatient (CLI) | payer MEDICAID | LOC: COL.RAD 05-13 10:30 | DX: I63.9 Cerebral infarction, unspecified (principal); R47.01 Aphasia; R76.8 Other specified abnormal immunological findings in serum ==

== ENCOUNTER 2019-06-21 09:30 | Outpatient (RCR) | payer MEDICAID, OTHER | END 2019-08-09 | disposition home or self-care (01) | LOC: WSST | DX: G81.91 Hemiplegia, unspecified affecting right dominant side (principal); Z98.890 Other specified postprocedural states ==

== ENCOUNTER 2019-09-02 14:45 | Outpatient (RCR) | payer MEDICAID, OTHER | END 2019-11-08 | LOC: MKS.ESL.PT | DX: G81.91 Hemiplegia, unspecified affecting right dominant side (principal); I60.12 Nontraumatic subarachnoid hemorrhage from left middle cerebral artery; Z98.890 Other specified postprocedural states ==

== ENCOUNTER 2020-04-03 14:30 | Outpatient (RCR) | payer MEDICAID | END 2020-04-10 | disposition home or self-care (01) | LOC: WSST | DX: I69.320 Aphasia following cerebral infarction (principal); I69.322 Dysarthria following cerebral infarction; I69.390 Apraxia following cerebral infarction ==